=== PATIENT | female | born 2005 | race African-American/Black ===

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

== ENCOUNTER → 2024-05-09 | Outpatient (CLI) | payer OTHER ==
[~2024-05-09] MED LIST changes: +FLUO-290; -ISOVUE-370 76% 100ML VIAL As Ordered ONE
== END ==
LOC: M RAD 07:59
PROVIDERS: ATTEND Internal Medicine Hematology & Oncology
DX: D73.89 Other diseases of spleen (principal)